=== PATIENT | female | born 1950 | race African-American/Black ===

== ENCOUNTER 2022-02-23 19:52 | Emergency (ER) | payer MEDICARE, MEDICAID ==
[~2022-02-23] VITALS: Ht 167.6 cm; Wt 80.0 kg
[2022-02-23 23:28] LABS: BASOPHILS % 0.4 % (0.0-2.0); EOSINOPHILS % 1.4 % (0.0-5.0); HEMATOCRIT. 42.3 % (36.0-48.0); HEMOGLOBIN. 14.2 g/dL (12.0-16.0); LYMPHOCYTES % 37.4 % (20.0-50.0); MEAN CORPUSCULAR HEMOGLOBIN 31.3 pg (28.0-32.0); MEAN CORPUSCULAR VOLUME 93.3 fL (81.0-99.0); MEAN PLATELET VOLUME 10.6 fl (7.4-10.4); MONOCYTES % 7.4 % (2.0-8.0); NEUTROPHILS % 53.4 % (40.0-76.0); PLATELET 213 x1000/uL (130-400); RED BLOOD CELL COUNT 4.53 mill/uL (4.2-5.4); RED CELL DISTRIBUTION WIDTH 13.9 % (11.6-14.6)
[2022-02-23 23:48] LABS: CHLORIDE 105 mEq/L (98-107)
[2022-02-24] MEDS ORDERED: IOHEXOL-350 100 ML BOTTLE ONE (03:08)
[2022-02-24 12:30] VITALS: BP 132/88
== END 2022-02-24 15:49 ==
LOC: ER 19:52 → CANBEDREQ 02-24 21:05
DX: R07.9 Chest pain, unspecified (principal); J44.9 Chronic obstructive pulmonary disease, unspecified; E11.9 Type 2 diabetes mellitus without complications; E78.00 Pure hypercholesterolemia, unspecified; I25.2 Old myocardial infarction; I10 Essential (primary) hypertension; I69.351 Hemiplegia and hemiparesis following cerebral infarction affecting right dominant side; Z88.6 Allergy status to analgesic agent; Z88.8 Allergy status to other drugs, medicaments and biological substances
CPT/HCPCS: 36415; 71045; 71275; 80053; 83880; 84484; 85025; 85379; 93005; 99285; Q9967

== ENCOUNTER 2023-03-07 18:42 | Inpatient (IN) | payer MEDICARE, MEDICAID ==
[~2023-03-07] VITALS: Ht 162.6 cm; Wt 88.5 kg
[2023-03-07] MEDS ORDERED: LACTATED RINGERS 500 ML IV SCH ×2 (20:45→22:45)
[2023-03-07 21:54] LABS: BASOPHILS % 0.4 % (0.0-2.0); EOSINOPHILS % 2.3 % (0.0-5.0); HEMATOCRIT. 40.5 % (36.0-48.0); HEMOGLOBIN. 12.9 g/dL (12.0-16.0); LYMPHOCYTES % 42.8 % (20.0-50.0); MEAN CORPUSCULAR HEMOGLOBIN 29.7 pg (28.0-32.0); MEAN CORPUSCULAR HGB CONC 31.9 g/dL (31.0-37.0); MEAN PLATELET VOLUME 9.5 fl (7.4-10.4); MONOCYTES % 6.9 % (2.0-8.0); NEUTROPHILS % 47.6 % (40.0-76.0); PLATELET 242 x1000/uL (130-400); RED BLOOD CELL COUNT 4.35 mill/uL (4.2-5.4); RED CELL DISTRIBUTION WIDTH 15.5 % (11.6-14.6)
[2023-03-07 22:01] LABS: INR 1.1; PROTHROMBIN TIME 11.3 sec (9.6-11.0)
[2023-03-07 22:06] LABS: ALANINE AMINOTRANSFERASE 14 IU/L (10-49); ALBUMIN 3.9 g/dL (3.2-4.8); ASPARTATE AMINOTRANSFERASE 17 IU/L (<34); BILIRUBIN TOTAL 0.2 mg/dL (0.1-1.0); CALCIUM 9.1 mg/dL (8.7-10.4); CARBON DIOXIDE 22 mEq/L (21-32); CHLORIDE 105 mEq/L (98-107); CREATININE 0.5 mg/dL (0.6-1.0); GLUCOSE 106 mg/dL (70-105); POTASSIUM 3.8 mEq/L (3.5-5.1); PROTEIN TOTAL 7.3 g/dL (6.0-8.3); SODIUM 140 mEq/L (136-145); UREA NITROGEN BLOOD 13 mg/dL (9-23)
[2023-03-07 22:08] LABS: TROPONIN I HIGH SENSITIVITY < 4 ng/L (3.0-34)
[2023-03-07 22:30] LABS: LACTIC ACID 5.2 mmol/L (0.4-2.0)
[2023-03-07] MEDS ORDERED: PIPERACILLIN/TAZO 3.375G/50ML 50 ML IV ONE (22:45)
[2023-03-08] MEDS ORDERED: PIPERACILLIN/TAZO 3.375G/50ML 50 ML IV NR (01:45)
[2023-03-08] MEDS ORDERED: IPRATROPIUM/ALBUTEROL 0.5-3(2.5)MG/3ML NEB HHN PRN (12:15)
[2023-03-08] MEDS ORDERED: ACETAMINOPHEN 325MG TABLET PO PRN (12:15)
[2023-03-08] MEDS: DEXT 5%/0.9% NACL 1,000 ML IV SCH ×2 (12:38→21:19)
[2023-03-08] MEDS ORDERED: DEXTROSE 50% WATER 50ML SYRINGE IV PRN (17:15)
[2023-03-08] MEDS: INSULIN LISPRO 100 UNITS/ML SUBCUT SCH ×2 (17:15→21:20)
[2023-03-08] MEDS: LOSARTAN 25 MG TABLET PO SCH (18:04)
[2023-03-08] MEDS: PANTOPRAZOLE SODIUM 40 MG/VIAL IV SCH (18:04)
[2023-03-08 18:45] VITALS: BP 146/85; PULSE 80; RESP 18; TEMP 97.7
[2023-03-08] MEDS: ACETAMINOPHEN 325MG TABLET PO PRN (19:48)
[2023-03-08 20:00] VITALS: BP 169/83; PULSE 74; PULSE 78; RESP 18; RESP 19; TEMP 98; TEMP 98.9
[2023-03-08] MEDS: BLOOD SUGAR DIAGNOSTIC STRIP TEST SCH (20:30)
[2023-03-08] MEDS: METOPROLOL TARTRATE 25MG TABLET PO SCH (21:19)
[2023-03-08] MEDS: ATORVASTATIN CALCIUM 20MG TABLET PO SCH (21:19)
[2023-03-08] MEDS: GABAPENTIN 100MG CAPSULE PO SCH (21:19)
[2023-03-08] MEDS ORDERED: NON FORMULARY PATIENT HOME MED XX ONE (23:30)
[2023-03-08] MEDS ORDERED: MELATONIN 3MG TABLET PO NR (23:45)
[2023-03-09] VITALS: BP 120/69; PULSE 59; RESP 20; TEMP 97.6
[2023-03-09] MEDS ORDERED: ATOR20TA PO (01:42)
[2023-03-09] MEDS ORDERED: ASPI-1497 PO (01:42)
[2023-03-09] MEDS ORDERED: LACT10SO3 PO (01:42)
[2023-03-09] MEDS ORDERED: METO-396 PO (01:42)
[2023-03-09] MEDS ORDERED: TRAM50TA3 PO (01:42)
[2023-03-09] MEDS ORDERED: LOSA25TA26 PO (01:42)
[2023-03-09] MEDS ORDERED: QUET25TA PO (01:42)
[2023-03-09] MEDS ORDERED: GABA100C PO (01:42)
[2023-03-09] MEDS ORDERED: DOCU-138 MT (01:42)
[2023-03-09] MEDS ORDERED: DULA0.75 SQ (01:42)
[2023-03-09] MEDS ORDERED: MELA1TAB28 MT (01:42)
[2023-03-09] MEDS ORDERED: METF500S9 PO (01:42)
[2023-03-09 04:00] VITALS: BP 145/78; PULSE 83; RESP 18; TEMP 97.7
[2023-03-09] MEDS: BLOOD SUGAR DIAGNOSTIC STRIP TEST SCH ×4 (06:10→20:04)
[2023-03-09] MEDS: INSULIN LISPRO 100 UNITS/ML SUBCUT SCH ×4 (06:11→20:04)
[2023-03-09] MEDS: GABAPENTIN 100MG CAPSULE PO SCH ×3 (06:14→21:40)
[2023-03-09 08:00] VITALS: BP 169/74; PULSE 74; RESP 18; TEMP 97.1
[2023-03-09] MEDS: PANTOPRAZOLE SODIUM 40 MG/VIAL IV SCH (08:06)
[2023-03-09] MEDS: METOPROLOL TARTRATE 25MG TABLET PO SCH ×2 (08:07→20:05)
[2023-03-09] MEDS: LOSARTAN 25 MG TABLET PO SCH (08:07)
[2023-03-09] MEDS: QUETIAPINE FUMARATE 25MG TABLET PO SCH (08:07)
[2023-03-09] MEDS: DEXT 5%/0.9% NACL 1,000 ML IV SCH ×2 (08:12→20:05)
[2023-03-09 12:00] VITALS: BP 169/74; PULSE 74; RESP 18; TEMP 97.1
[2023-03-09] MEDS: ENOXAPARIN 40MG/0.4ML SYR SUBCUT SCH (13:58)
[2023-03-09 16:00] VITALS: BP 121/67; PULSE 70; RESP 18; TEMP 97.6
[2023-03-09 17:07] LABS: BASOPHILS % 0.3 % (0.0-2.0); EOSINOPHILS % 1.7 % (0.0-5.0); HEMATOCRIT. 39.6 % (36.0-48.0); LYMPHOCYTES % 39.4 % (20.0-50.0); MEAN CORPUSCULAR HEMOGLOBIN 30.1 pg (28.0-32.0); MEAN CORPUSCULAR HGB CONC 32.9 g/dL (31.0-37.0); MEAN CORPUSCULAR VOLUME 91.6 fL (81.0-99.0); MEAN PLATELET VOLUME 10.1 fl (7.4-10.4); MONOCYTES % 8.5 % (2.0-8.0); NEUTROPHILS % 50.1 % (40.0-76.0); PLATELET 231 x1000/uL (130-400); RED BLOOD CELL COUNT 4.32 mill/uL (4.2-5.4); RED CELL DISTRIBUTION WIDTH 15.8 % (11.6-14.6); WHITE BLOOD COUNT 6.8 x1000/uL (4.5-11.0)
[2023-03-09 17:38] LABS: CALCIUM 9.2 mg/dL (8.7-10.4); CARBON DIOXIDE 26 mEq/L (21-32); CHLORIDE 107 mEq/L (98-107); CREATININE 0.5 mg/dL (0.6-1.0); GLUCOSE 172 mg/dL (70-105); PHOSPHORUS 3.2 mg/dL (2.5-4.9); POTASSIUM 4.1 mEq/L (3.5-5.1); SODIUM 142 mEq/L (136-145); UREA NITROGEN BLOOD 7 mg/dL (9-23)
[2023-03-09] MEDS: ACETAMINOPHEN 325MG TABLET PO PRN (19:56)
[2023-03-09 20:00] VITALS: BP 139/74; PULSE 64; RESP 18; TEMP 98.6
[2023-03-09] MEDS: ATORVASTATIN CALCIUM 20MG TABLET PO SCH (20:05)
[2023-03-10] VITALS: BP 145/69; PULSE 79; RESP 19; TEMP 97.5
[2023-03-10 04:00] VITALS: BP 156/85; PULSE 61; RESP 18; TEMP 97.9
[2023-03-10] MEDS: GABAPENTIN 100MG CAPSULE PO SCH ×2 (06:19→13:40)
[2023-03-10] MEDS: INSULIN LISPRO 100 UNITS/ML SUBCUT SCH ×2 (06:19→13:46)
[2023-03-10] MEDS: BLOOD SUGAR DIAGNOSTIC STRIP TEST SCH ×3 (06:19→17:10)
[2023-03-10 08:00] VITALS: BP 153/88; PULSE 71; RESP 18; TEMP 97.6
[2023-03-10] MEDS ORDERED: FAMOTIDINE 20MG/2ML VIAL IV SCH (09:00)
[2023-03-10] MEDS: LOSARTAN 25 MG TABLET PO SCH (10:19)
[2023-03-10] MEDS: QUETIAPINE FUMARATE 25MG TABLET PO SCH (10:19)
[2023-03-10] MEDS: METOPROLOL TARTRATE 25MG TABLET PO SCH (10:19)
[2023-03-10 12:00] VITALS: BP 138/63; PULSE 75; RESP 18; TEMP 97
[2023-03-10] MEDS: ENOXAPARIN 40MG/0.4ML SYR SUBCUT SCH (13:40)
[2023-03-10 14:31] VITALS: BP 125/75; PULSE 74; TEMP 98; O2SAT 98
[2023-03-10 16:00] VITALS: BP 122/65; PULSE 77; RESP 18; TEMP 97.1
== END 2023-03-10 17:25 | DRG 422 ==
LOC: ER 18:42 → 5WST 22:45 → EDBEDREQTM 22:50 → EDBEDREQ 22:50 → 8WST 03-08 18:53
PROVIDERS: ADMIT Preventive Medicine Clinical Informatics; ATTEND Preventive Medicine Clinical Informatics
DX: E86.0 Dehydration (principal); G93.41 Metabolic encephalopathy; E87.20 Acidosis, unspecified; I69.951 Hemiplegia and hemiparesis following unspecified cerebrovascular disease affecting right dominant side; E11.9 Type 2 diabetes mellitus without complications; D64.9 Anemia, unspecified; E78.00 Pure hypercholesterolemia, unspecified; F20.9 Schizophrenia, unspecified; Z20.822 Contact with and (suspected) exposure to COVID-19; I10 Essential (primary) hypertension; I49.3 Ventricular premature depolarization; I25.10 Atherosclerotic heart disease of native coronary artery without angina pectoris; I25.2 Old myocardial infarction; J44.9 Chronic obstructive pulmonary disease, unspecified; Z79.4 Long term (current) use of insulin; Z79.84 Long term (current) use of oral hypoglycemic drugs; Z79.899 Other long term (current) drug therapy; Z88.5 Allergy status to narcotic agent; Z88.8 Allergy status to other drugs, medicaments and biological substances
CPT/HCPCS: 36415; 71045; 80048; 80053; 82962; 83036; 83605; 83735; 84100; 84484; 85025; 87426; 92610; 93005; 93306; 99285; C9113; J1650; J1815; J2543; J3490

== ENCOUNTER 2024-12-19 13:55 | Inpatient (IN) | payer MEDICARE, MEDICAID ==
[~2024-12-19] VITALS: Ht 162.6 cm; Wt 80.9 kg
[~2024-12-19 13:55] MED LIST: ASCO500C18 PO; ASPI-1497 PO; ATOR20TA PO; CELL5 MT; DICL100G58 TP; DIPH-1207 PO; DOCU-138 MT; FAMO20TA8 PEG; GABA100C PO; HJ10 SUBCUT; INSU100I28 SQ; LACT-390 PO; LOSA25TA26 PO; MELA1TAB28 MT; METO-396 PO; METO5TAB2 PEG; NYST15PO13 TP; ONDA4SOL PEG; RISP05 PEG
[2024-12-19 15:29] LABS: BASOPHILS % 0.7 % (0.0-2.0); EOSINOPHILS % 3.2 % (0.0-5.0); HEMATOCRIT. 38.3 % (36.0-48.0); HEMOGLOBIN. 12.2 g/dL (12.0-16.0); LYMPHOCYTES % 37.0 % (20.0-50.0); MEAN PLATELET VOLUME 9.2 fl (7.4-10.4); MONOCYTES % 9.4 % (2.0-8.0); NEUTROPHILS % 49.7 % (40.0-76.0); PLATELET 267 x1000/uL (130-400); RED BLOOD CELL COUNT 4.46 mill/uL (4.2-5.4); RED CELL DISTRIBUTION WIDTH 16.4 % (11.6-14.6)
[2024-12-19] MEDS: SODIUM CHLORIDE 0.9% (SEPSIS BOLUS) IV ONE (15:30)
[2024-12-19] MEDS: CEFTRIAXONE 1GM/50ML 50 ML IV ONE (15:31)
[2024-12-19 15:39] LABS: INR 1.1
[2024-12-19 15:45] LABS: CREATININE 0.8 mg/dL (0.6-1.0); UREA NITROGEN BLOOD 12 mg/dL (9-23)
[2024-12-19 15:47] LABS: ASPARTATE AMINOTRANSFERASE 16 IU/L (<34); BILIRUBIN DIRECT < 0.1 mg/dL (<=3.0); BILIRUBIN TOTAL 0.2 mg/dL (0.1-1.0); PROTEIN TOTAL 7.0 g/dL (6.0-8.3)
[2024-12-19] MEDS ORDERED: MIDAZOLAM HCL 2 MG/2 ML VIAL ONE (18:17)
[2024-12-19] MEDS: MIDAZOLAM HCL 2 MG/2 ML VIAL IV STA (18:22)
[2024-12-19] MEDS: MIDAZOLAM HCL 2 MG/2 ML VIAL IV ONE ×2 (18:24→20:01)
[2024-12-19 20:01] VITALS: O2SAT 98
[2024-12-19] MEDS: HALOPERIDOL LACTATE 5MG/ML VIAL IM ONE (20:55)
[2024-12-19 23:15] VITALS: BP 140/71; PULSE 79; RESP 18; TEMP 37.0296
[2024-12-20] VITALS (7 sets, daily range): BP systolic 118–166; BP diastolic 64–145; PULSE 20–91; RESP 18–20; TEMP 36.1–37; O2SAT 97–100
[2024-12-20] MEDS ORDERED: RAME8TAB24 PO (00:56)
[2024-12-20] MEDS ORDERED: TOPUD PO (00:56)
[2024-12-20] MEDS ORDERED: LIDO700A30 TP (00:56)
[2024-12-20] MEDS ORDERED: CRAN450T10 MT (00:56)
[2024-12-20] MEDS ORDERED: CIPR-263 MT (00:56)
[2024-12-20] MEDS ORDERED: OXYB-52 PO (00:56)
[2024-12-20] MEDS ORDERED: SENN-371 MT (00:56)
[2024-12-20] MEDS ORDERED: DOCUSATE SODIUM 100MG CAPSULE PO PRN (02:30)
[2024-12-20] MEDS ORDERED: MAGNESIUM/ALUMINUM HYDROXIDE/SIMETHICONE 30ML UDC PO PRN (02:30)
[2024-12-20] MEDS ORDERED: CLONIDINE 0.1MG TABLET PO PRN (02:30)
[2024-12-20] MEDS ORDERED: ACETAMINOPHEN 650MG/20.3ML UDC GT PRN (02:30)
[2024-12-20] MEDS ORDERED: DIPHENHYDRAMINE 50MG/ML VIAL IV PRN (02:30)
[2024-12-20] MEDS ORDERED: ACETAMINOPHEN 325MG TABLET PO PRN (02:30)
[2024-12-20] MEDS ORDERED: DEXTROSE 50% WATER 50ML SYRINGE IV PRN (03:15)
[2024-12-20] MEDS: ACETAMINOPHEN 325MG TABLET PO PRN (06:12)
[2024-12-20] MEDS: BLOOD SUGAR DIAGNOSTIC STRIP TEST SCH (08:12)
[2024-12-20] MEDS: ENOXAPARIN 40MG/0.4ML SYR SUBCUT SCH (08:58)
[2024-12-20] MEDS: LOSARTAN 25 MG TABLET PO SCH (08:59)
[2024-12-20] MEDS: INSULIN LISPRO 100 UNITS/ML SUBCUT SCH (09:01)
[2024-12-20] MEDS: CEFTRIAXONE 1GM/50ML 50 ML IV SCH (14:00)
[2024-12-20] MEDS ORDERED: CEFTRIAXONE 1GM/50ML 50 ML IV SCH (15:00)
[2024-12-20] MEDS: SULFAMETHOXAZOLE/TRIMETHOPRIM 800/160MG TABLET PO SCH (22:08)
[2024-12-20] MEDS: MELATONIN 3MG TABLET PO SCH (22:08)
[2024-12-21] VITALS: BP 128/87; PULSE 86; RESP 18; TEMP 36.4; O2SAT 97
[2024-12-21 04:00] VITALS: BP 126/85; PULSE 93; RESP 20; TEMP 36.1; O2SAT 99
[2024-12-21 04:49] LABS: CLARITY URINE TURBID (CLEAR); COLOR URINE YELLOW (YELLOW); GLUCOSE URINE NEGATIVE (NEGATIVE); KETONES URINE NEGATIVE (NEGATIVE); LEUKOCYTE ESTERASE URINE 3+ (NEGATIVE); NITRITE URINE POSITIVE (NEGATIVE); OCCULT BLOOD URINE 2+ (NEGATIVE); PH URINE 6.0 (4.5-8.0); PROTEIN URINE 1+ (NEGATIVE); SPECIFIC GRAVITY URINE 1.013 (1.005-1.030); UROBILINOGEN URINE 0.2 E.U./dL (0.2-1.0)
[2024-12-21 05:13] LABS: BACTERIA URINE 3+; SQUAMOUS EPITHELIAL CELL URINE 3+ /lpf (RARE/1+); WBC URINE TNTC /hpf (0-2)
[2024-12-21 07:59] LABS: BASOPHILS % 0.3 % (0.0-2.0); EOSINOPHILS % 2.9 % (0.0-5.0); HEMATOCRIT. 38.6 % (36.0-48.0); HEMOGLOBIN. 12.2 g/dL (12.0-16.0); LYMPHOCYTES % 27.1 % (20.0-50.0); MEAN PLATELET VOLUME 9.3 fl (7.4-10.4); MONOCYTES % 10.0 % (2.0-8.0); NEUTROPHILS % 59.7 % (40.0-76.0); PLATELET 263 x1000/uL (130-400); RED BLOOD CELL COUNT 4.54 mill/uL (4.2-5.4); RED CELL DISTRIBUTION WIDTH 16.7 % (11.6-14.6)
[2024-12-21 08:00] VITALS: BP 171/79; PULSE 87; RESP 19; TEMP 37.1; O2SAT 98
[2024-12-21 08:28] LABS: CREATININE 0.8 mg/dL (0.6-1.0); UREA NITROGEN BLOOD 14 mg/dL (9-23)
[2024-12-21 12:00] VITALS: BP 96/67; PULSE 99; RESP 20; TEMP 36.9; O2SAT 98
[2024-12-21 16:00] VITALS: BP 108/74; PULSE 89; RESP 18; TEMP 36.8; O2SAT 96
[2024-12-21 20:00] VITALS: BP 115/65; PULSE 101; RESP 19; TEMP 36.7; O2SAT 100
[2024-12-22 00:21] VITALS: BP 122/76; PULSE 92; RESP 18; TEMP 36.3; O2SAT 97
[2024-12-22 04:06] VITALS: BP 128/77; PULSE 98; RESP 19; TEMP 36.4; O2SAT 98
[2024-12-22 08:00] VITALS: BP 143/56; PULSE 100; RESP 18; TEMP 35.7; O2SAT 98
[2024-12-22 12:00] VITALS: BP 139/71; PULSE 89; RESP 20; TEMP 36.4; O2SAT 98
[2024-12-22 15:57] VITALS: BP 143/62; PULSE 102; RESP 18; TEMP 97.6
[2024-12-22 16:00] VITALS: BP 129/75; PULSE 86; RESP 18; TEMP 36.4; O2SAT 98
== END 2024-12-22 18:00 | DRG 689 ==
LOC: ER 13:55 → 7WST 21:49 → EDBEDREQTM 21:51 → EDBEDREQ 21:51 → ENRESERV 22:54
PROVIDERS: ADMIT Internal Medicine Nephrology; ATTEND Internal Medicine Nephrology
DX: N13.6 Pyonephrosis (principal); L89.313 Pressure ulcer of right buttock, stage 3; L89.323 Pressure ulcer of left buttock, stage 3; I69.351 Hemiplegia and hemiparesis following cerebral infarction affecting right dominant side; I13.0 Hypertensive heart and chronic kidney disease with heart failure and stage 1 through stage 4 chronic kidney disease, or unspecified chronic kidney disease; F03.93 Unspecified dementia, unspecified severity, with mood disturbance; D64.9 Anemia, unspecified; E78.00 Pure hypercholesterolemia, unspecified; N18.9 Chronic kidney disease, unspecified; F20.9 Schizophrenia, unspecified; E11.22 Type 2 diabetes mellitus with diabetic chronic kidney disease; J44.9 Chronic obstructive pulmonary disease, unspecified; F31.9 Bipolar disorder, unspecified; I25.10 Atherosclerotic heart disease of native coronary artery without angina pectoris; I25.2 Old myocardial infarction; Z88.6 Allergy status to analgesic agent; Z88.8 Allergy status to other drugs, medicaments and biological substances; Z55.6 Problems related to health literacy; Z87.440 Personal history of urinary (tract) infections; Z87.442 Personal history of urinary calculi; Z93.6 Other artificial openings of urinary tract status
CPT/HCPCS: 36415; 71045; 74176; 80048; 80076; 81003; 82962; 83036; 83605; 84145; 85025; 87077; 87186; 93005; 93970; 96365; 96372; 96375; 99291; A6449; J0696; J1630; J1650; J1815; J2250; J7030

== ENCOUNTER 2025-01-02 12:46 | Emergency (ER) | payer MEDICARE, MEDICAID ==
[~2025-01-02] VITALS: Ht 162.6 cm; Wt 79.0 kg
[~2025-01-02 12:46] MED LIST changes: -ATOR20TA PO; +CRAN450T10 MT; -HJ10 SUBCUT; +LIDO700A30 TP; -METO-396 PO; -METO5TAB2 PEG; -NYST15PO13 TP; +OXYB-52 PO; +RAME8TAB24 PO; -RISP05 PEG; +SENN-371 MT; +TOPUD PO
[2025-01-02 12:48] VITALS: O2SAT 95
[2025-01-02 14:31] LABS: BASOPHILS % 0.5 % (0.0-2.0); EOSINOPHILS % 3.4 % (0.0-5.0); HEMATOCRIT. 39.2 % (36.0-48.0); HEMOGLOBIN. 12.5 g/dL (12.0-16.0); LYMPHOCYTES % 34.2 % (20.0-50.0); MEAN PLATELET VOLUME 9.2 fl (7.4-10.4); MONOCYTES % 10.8 % (2.0-8.0); NEUTROPHILS % 51.1 % (40.0-76.0); PLATELET 290 x1000/uL (130-400); RED BLOOD CELL COUNT 4.53 mill/uL (4.2-5.4); RED CELL DISTRIBUTION WIDTH 16.9 % (11.6-14.6)
[2025-01-02] MEDS: MORPHINE SULFATE 4 MG/ML INJ (FOR IV/IM USE) IV ONE (14:32)
[2025-01-02 14:33] LABS: CLARITY URINE TURBID (CLEAR); COLOR URINE YELLOW (YELLOW); GLUCOSE URINE NEGATIVE (NEGATIVE); KETONES URINE TRACE (NEGATIVE); NITRITE URINE POSITIVE (NEGATIVE); OCCULT BLOOD URINE 3+ (NEGATIVE); PH URINE 5.5 (4.5-8.0); PROTEIN URINE 3+ (NEGATIVE); SPECIFIC GRAVITY URINE 1.022 (1.005-1.030)
[2025-01-02 14:34] LABS: LEUKOCYTE ESTERASE URINE 3+ (NEGATIVE); UROBILINOGEN URINE 0.2 E.U./dL (0.2-1.0)
[2025-01-02 14:40] LABS: WBC URINE TNTC /hpf (0-2)
[2025-01-02 14:41] LABS: RBC URINE 25-50 /hpf (0-2); SQUAMOUS EPITHELIAL CELL URINE 1+ /lpf (RARE/1+)
[2025-01-02 14:42] LABS: BACTERIA URINE 3+
[2025-01-02 14:44] LABS: CREATININE 0.9 mg/dL (0.6-1.0); UREA NITROGEN BLOOD 13 mg/dL (9-23)
[2025-01-02 14:46] LABS: ASPARTATE AMINOTRANSFERASE 19 IU/L (<34)
[2025-01-02 14:47] LABS: BILIRUBIN DIRECT < 0.1 mg/dL (<=3.0); BILIRUBIN TOTAL 0.2 mg/dL (0.1-1.0); PROTEIN TOTAL 7.4 g/dL (6.0-8.3)
[2025-01-02] MEDS ORDERED: CEPH500C2 MT (15:02)
[2025-01-02] MEDS ORDERED: CEFTRIAXONE 1GM/50ML 50 ML IV SCH (15:30)
[2025-01-02] MEDS: CEFTRIAXONE 1GM/50ML 50 ML IV SCH (16:03)
[2025-01-02 19:47] VITALS: BP 120/72; PULSE 87; RESP 16; TEMP 36.7; O2SAT 97
== END 2025-01-02 20:34 ==
LOC: ER 13:14
DX: N39.0 Urinary tract infection, site not specified (principal); E78.00 Pure hypercholesterolemia, unspecified; J44.9 Chronic obstructive pulmonary disease, unspecified; I48.91 Unspecified atrial fibrillation; I11.0 Hypertensive heart disease with heart failure; I50.9 Heart failure, unspecified; E11.9 Type 2 diabetes mellitus without complications; Z79.4 Long term (current) use of insulin; Z79.899 Other long term (current) drug therapy; Z86.73 Personal history of transient ischemic attack (TIA), and cerebral infarction without residual deficits; Z79.624 Long term (current) use of inhibitors of nucleotide synthesis; Z88.5 Allergy status to narcotic agent
CPT/HCPCS: 99285; 74176; 96365; 96375; 80076; 80048; 81003; 83605; 85025; 87040; 87086; 87186; 87077; 36415; J0696; J2270